=== PATIENT | female | born 1945 | race Caucasian/White ===

== ENCOUNTER → 2016-11-01 | Outpatient (CLI) | payer MEDICARE, BC ==
--- NOTE | 2016-11-01 17:34 | RADRPT ---
PROCEDURE: XR Chest. CLINICAL INDICATION: Chest pain. TECHNIQUE: Single frontal view. COMPARISON: 12/31/2014. FINDINGS: The lungs are clear. There are bilateral breast implants. The heart size is normal. There is calcification in the aorta consistent with atherosclerosis. There is no pleural effusion. There is no pneumothorax. IMPRESSION: 1. Bilateral breast implants. 2. Clear lungs. 3. Atherosclerosis. 4. No change from 12/31/2014. RPTAT: QQ .Campos Womack MD, MD Date Time Electronically viewed and signed by .Campos Womack MD, MD on 11/01/2016 17:34 .R/
== END | disposition home or self-care (01) ==
LOC: RAD 15:55
PROVIDERS: ATTEND Internal Medicine
DX: R07.9 Chest pain, unspecified (principal); I70.0 Atherosclerosis of aorta
CPT/HCPCS: 71010